=== PATIENT | male | born 1965 | race Caucasian/White ===

== ENCOUNTER 2024-11-05 20:09 | Emergency (ER) | payer SELFPAY ==
[2024-11-05] MEDS: fentaNYL 100 MCG/2 ML SDV IM ONE (21:12)
[2024-11-05] MEDS: Sodium Chloride 0.9% 10 ML Syringe FLUSH ONE (22:47)
[2024-11-05] MEDS: Iopamidol 612 MG/ML 100 ML Bottle IV ONE (22:47)
[2024-11-06] MEDS: fentaNYL 100 MCG/2 ML SDV IVPUSH ONE (00:19)
== END 2024-11-05 23:55 | disposition home or self-care (01) ==
LOC: EDBD 20:09 → JP.ED 20:09
DX: M25.511 Pain in right shoulder (principal); Z79.899 Other long term (current) drug therapy
CPT/HCPCS: 71260; 73030; 96372; 99284; J3010; Q9967